=== PATIENT | male | born 1935 | race African-American/Black ===

== ENCOUNTER 2017-09-12 18:41 | Inpatient (IN) | payer MEDICARE, OTHER ==
[~2017-09-12] VITALS: Ht 170.2 cm; Wt 177.0 kg
[~2017-09-12 18:41] MED LIST: ACET-929 OR; CLIN1CAP4 OR; CYCL-181 OR; ESOM40CA39 OR; GABA300C10 OR; NORVASC OR; SULF-35 OR; VALS320T15 OR
[2017-09-12 19:26] LABS: Eosinophils # (auto) 0.3 uL; Lymphocytes # (auto) 1.1 uL; Mean Corpuscular Volume 101.9 fL (80.0-100.0); Monocytes # (auto) 0.6 uL; Platelet Count (auto) 115 10^3/uL (140-450); White Blood Cell 4.1 10^3/uL (4.4-10.8)
[2017-09-12 19:28] LABS: Basophils # (auto) 0.1 uL; Basophils % (auto) 1.4 % (0.0-2.0); Eosinophils % (auto) 7.2 % (0.0-7.0); Hemoglobin 15.8 g/dL (13.5-17.5); Lymphocytes % (auto) 27.7 % (10.0-50.0); Mean Corpuscular Hemoglobin 34.3 pg (28.0-32.0); Mean Corpuscular Hgb Conc. 33.6 g/dL (32.0-36.0); Monocytes % (auto) 13.9 % (0.0-12.0); Neutrophils % (auto) 49.8 % (37.0-80.0); Nucleated Red Blood Cells % 0.2 %; Red Blood Cells 4.61 10^6/uL (4.5-5.90); Red Cell Distribution Width 12.8 % (11.8-14.3)
[2017-09-12 19:54] LABS: Alanine Aminotransferase 26 U/L (16-61); Albumin 3.6 g/dL (3.4-5.0); Alkaline Phosphatase 52 U/L (45-117); Anion Gap 9 (5-15); Aspartate Aminotransferase 18 U/L (15-37); BUN/Creatinine Ratio 17.2; Bilirubin, Total 0.6 mg/dL (0.2-1.0); Blood Urea Nitrogen 15 mg/dL (7-18); Calcium 7.9 mg/dL (8.5-10.1); Carbon Dioxide 24 mmol/L (21-32); Chloride 106 mmol/L (98-107); GFR African American 108 mL/min; GFR Non-African American 90 mL/min; Glucose 156 mg/dL (74-106); Magnesium 2.2 mg/dL (1.6-2.6); Potassium 3.9 mmol/L (3.5-5.1); Sodium 139 mmol/L (136-145); Total Protein 7.3 g/dL (6.4-8.2)
[2017-09-13] MEDS ORDERED: ONDANSETRON HCL 4 MG/2 ML VIAL IV PRN (01:15)
[2017-09-13] MEDS ORDERED: ACETAMINOPHEN 500 MG TAB PO PRN (01:15)
[2017-09-13] MEDS ORDERED: HYDROcodone-ACET 5/325MG TAB PO PRN (01:15)
[2017-09-13 01:29] VITALS: BP 138/79
[2017-09-13 02:01] LABS: Basophils # (auto) 0 uL; Basophils % (auto) 0.7 % (0.0-2.0); Eosinophils # (auto) 0.3 uL; Eosinophils % (auto) 7.4 % (0.0-7.0); Hematocrit 45.9 % (41.0-53.0); Hemoglobin 15.3 g/dL (13.5-17.5); Lymphocytes # (auto) 1.2 uL; Lymphocytes % (auto) 32.1 % (10.0-50.0); Mean Corpuscular Hemoglobin 33.7 pg (28.0-32.0); Mean Corpuscular Hgb Conc. 33.3 g/dL (32.0-36.0); Mean Corpuscular Volume 101.4 fL (80.0-100.0); Monocytes # (auto) 0.6 uL; Monocytes % (auto) 16.4 % (0.0-12.0); Neutrophils # (auto) 1.6 uL; Neutrophils % (auto) 43.4 % (37.0-80.0); Nucleated Red Blood Cells % 0.2 %; Platelet Count (auto) 114 10^3/uL (140-450); Red Blood Cells 4.53 10^6/uL (4.5-5.90); Red Cell Distribution Width 12.8 % (11.8-14.3); White Blood Cell 3.7 10^3/uL (4.4-10.8)
[2017-09-13 02:13] LABS: BUN/Creatinine Ratio 18.2; Calcium 8.4 mg/dL (8.5-10.1); Potassium 3.9 mmol/L (3.5-5.1)
[2017-09-13 05:00] VITALS: BP 111/69
[2017-09-13] MEDS: IPRATROPIUM BROM 0.5 MG/2.5ML INH SOL NEB SCH ×2 (08:38→14:03)
[2017-09-13] MEDS: ALBUTEROL SULF 2.5 MG/0.5ML(0.5%) NEB SOLN NEB SCH ×2 (08:39→14:03)
[2017-09-13 08:50] VITALS: BP 137/47
[2017-09-13] MEDS ORDERED: METF-370 PO (09:20)
[2017-09-13] MEDS ORDERED: AMLO5TAB2 PO (09:20)
[2017-09-13] MEDS ORDERED: AZITHROMYCIN 250 MG TAB PO SCH (10:00)
[2017-09-13 11:24] VITALS: BP 141/76
[2017-09-13 16:00] VITALS: BP 164/97
[2017-09-13 16:11] VITALS: BP 141/76
== END 2017-09-13 17:30 | disposition home health service (06) | DRG 191 ==
LOC: EDBD 18:41 → ER 18:41 → WEST WING 18:42
PROVIDERS: ADMIT Nurse Practitioner Family; ATTEND Internal Medicine
DX: J44.1 Chronic obstructive pulmonary disease with (acute) exacerbation (principal); Z68.44 Body mass index [BMI] 60.0-69.9, adult; J96.11 Chronic respiratory failure with hypoxia; I11.0 Hypertensive heart disease with heart failure; I50.9 Heart failure, unspecified; E11.9 Type 2 diabetes mellitus without complications; M19.90 Unspecified osteoarthritis, unspecified site; E66.9 Obesity, unspecified; G47.33 Obstructive sleep apnea (adult) (pediatric); Z79.899 Other long term (current) drug therapy; Z99.81 Dependence on supplemental oxygen; Z79.84 Long term (current) use of oral hypoglycemic drugs; Z90.49 Acquired absence of other specified parts of digestive tract; I25.2 Old myocardial infarction
CPT/HCPCS: 36415; 36600; 71045; 80048; 80053; 82805; 83605; 83735; 83880; 84484; 85025; 87040; 93005; 94640